=== PATIENT | male | born 1995 | race Caucasian/White ===

== ENCOUNTER 2023-07-01 20:29 | Emergency (ER) | payer SELFPAY ==
[2023-07-01] MEDS ORDERED: Lactulose 20 GM (30 mL) UDCUP ONE (21:42)
== END 2023-07-01 21:56 | disposition home or self-care (01) ==
LOC: ERS 20:29 → EEVIPCON 20:29 → ERS 21:56
DX: Z02.89 Encounter for other administrative examinations (principal); K74.60 Unspecified cirrhosis of liver; Z87.891 Personal history of nicotine dependence
CPT/HCPCS: 99283